=== PATIENT | male | born 1960 | race Caucasian/White ===

== ENCOUNTER 2022-09-09 11:55 | Inpatient (IN) | payer MEDICARE ==
[~2022-09-09] VITALS: Ht 175.3 cm; Wt 115.0 kg
[2022-09-09 13:50] VITALS: BP 125/88
[2022-09-09 14:00] VITALS: BP 138/81
[2022-09-09] MEDS ORDERED: ACETAMINOPHEN TAB 650MG DOSE (2X325MG) PO PRN (14:10)
[2022-09-09] MEDS ORDERED: ONDANSETRON 4MG TAB PO PRN (14:10)
[2022-09-09] MEDS ORDERED: DEXTROSE 50% 50ML SYRINGE IV PRN (14:10)
[2022-09-09] MEDS ORDERED: GLUCAGON INJ 1MG VIAL SC PRN (14:10)
[2022-09-09] MEDS ORDERED: GLUCOSE 4GM CHEW TABLET PO PRN (14:10)
[2022-09-09 15:34] LABS: INR 1.85; PROTHROMBIN TIME 21.7 SECONDS (12.5-14.5)
[2022-09-09] MEDS: REMEDY PHYTOPLEX Z-GUARD PASTE 113GM TUBE (FROM STOREROOM PRODUCT) TOP SCH ×2 (16:00→20:25)
[2022-09-09] MEDS: POLYVINYL ALCOHOL OPHTH SOLN 15ML (LIQUITEARS) OU SCH ×2 (16:00→20:25)
[2022-09-09] MEDS: INSULIN LISPRO (NovoLOG) PER UNIT SC SCH (17:03)
[2022-09-09 20:00] VITALS: BP 128/90
[2022-09-09] MEDS: DOCUSATE SODIUM 100MG CAPSULE PO SCH (20:25)
[2022-09-09] MEDS ORDERED: INSULIN LISPRO (NovoLOG) PER UNIT SC SCH (21:00)
[2022-09-09] MEDS ORDERED: LEVEMIR (INSULIN DETEMIR) 1 UNITS/0.01ML SC SCH (21:00)
[2022-09-09] MEDS ORDERED: TAMS1CAP17 PO (21:04)
[2022-09-09] MEDS ORDERED: ATOR1TAB21 PO (21:04)
[2022-09-09] MEDS ORDERED: AMIO200T37 PO (21:04)
[2022-09-09] MEDS ORDERED: OYST1TAB PO (21:04)
[2022-09-09] MEDS ORDERED: FURO20TA2 PO (21:04)
[2022-09-09] MEDS ORDERED: REFR0.5D8 OU (21:04)
[2022-09-09] MEDS ORDERED: LEVOTAB10 PO (21:04)
[2022-09-09] MEDS ORDERED: WARF-58 PO (21:04)
[2022-09-09] MEDS ORDERED: LEVO50TA5 PO (21:04)
[2022-09-09] MEDS ORDERED: AMLO1TAB25 PO (21:04)
[2022-09-09] MEDS ORDERED: PIOG1TAB55 PO (21:04)
[2022-09-09] MEDS ORDERED: D 101000 PO (21:04)
[2022-09-09] MEDS ORDERED: OMEP40CA4 PO (21:04)
[2022-09-09] MEDS ORDERED: GLIP10TA6 PO (21:04)
[2022-09-09] MEDS ORDERED: CARV25TA PO (21:04)
[2022-09-09] MEDS ORDERED: CENT1TAB12 PO (21:04)
[2022-09-09] MEDS ORDERED: VITA500T40 PO (21:04)
[2022-09-09] MEDS ORDERED: METF10004 PO (21:04)
[2022-09-09] MEDS ORDERED: ASPI81TA26 PO (21:04)
[2022-09-09] MEDS ORDERED: FERR325T3 PO (21:04)
[2022-09-09] MEDS ORDERED: HOME MED LIST COMPLETE! XX SCH (21:05)
[2022-09-09] MEDS: CETIRIZINE (ZyrTEC) 10 MG TAB PO SCH (21:41)
[2022-09-09] MEDS: WARFARIN SOD 2MG TAB PO SCH (21:41)
[2022-09-09] MEDS: SENNA 8.6 MG TAB (SENOKOT) PO SCH (21:41)
[2022-09-09] MEDS: TAMSULOSIN 0.4 MG CAP PO SCH (21:41)
[2022-09-09] MEDS: ATORVASTATIN 20 MG TAB PO SCH (21:41)
[2022-09-09] MEDS: CARVedilol 12.5 MG TAB PO SCH (21:42)
[2022-09-09] MEDS: PANTOPRAZOLE 40MG TAB (PROTONIX) PO SCH (21:42)
[2022-09-09] MEDS: glipiZIDE (GLUCOTROL) 5 MG TAB PO SCH (21:43)
[2022-09-10] MEDS: LEVOTHYROXINE 50MCG TABLET (0.05MG) PO SCH (05:31)
[2022-09-10 06:00] VITALS: BP 108/69
[2022-09-10 06:01] LABS: BASO # 0.1 10^3/uL (0.0-0.2); BASO % 0.8 % (0.0-1.0); EOS # 0.2 10^3/uL (0.0-0.5); EOS % 2.7 % (0.0-3.0); HEMATOCRIT 38.9 % (42.0-52.0); HEMOGLOBIN 12.5 g/dl (13.5-17.5); LYMPH % 11.9 % (24.0-44.0); MEAN CORPUSCULAR HEMOGLOBIN 31.6 pg (27.0-33.0); MEAN CORPUSCULAR HGB CONC 32.1 g/dl (32.0-36.5); MEAN CORPUSCULAR VOLUME 98.5 fl (80.0-96.0); MONO # 1.1 10^3/uL (0.0-0.8); MONO % 13.2 % (2.0-8.0); NEUTROPHILS # 6.1 10^3/uL (1.5-8.5); NEUTROPHILS % 70.8 % (36.0-66.0); PLATELET COUNT, AUTOMATED 344 10^3/uL (150-450); RED BLOOD COUNT 3.95 10^6/uL (4.30-6.10); WHITE BLOOD COUNT 8.6 10^3/uL (4.0-10.0)
[2022-09-10 06:35] LABS: ALBUMIN 2.5 G/DL (3.2-5.2); ALKALINE PHOSPHATASE 266 U/L (46-116); ALT/SGPT 90 U/L (7.0-40); AST/SGOT 94 U/L (<34); BILIRUBIN,TOTAL 0.9 MG/DL (0.3-1.2); BLOOD UREA NITROGEN 20 MG/DL (9-23); CALCIUM LEVEL 8.1 MG/DL (8.3-10.6); CARBON DIOXIDE LEVEL 31 MMOL/L (20-31); CHLORIDE LEVEL 101 MMOL/L (98-107); CREATININE FOR GFR 1.02 MG/DL (0.70-1.30); GLOMERULAR FILTRATION RATE > 60.0 (>49); GLUCOSE, FASTING 58 MG/DL (74-106); POTASSIUM SERUM 4.3 MMOL/L (3.5-5.1); SODIUM LEVEL 137 MMOL/L (136-145); TOTAL PROTEIN 6.3 G/DL (5.7-8.2)
[2022-09-10 06:39] LABS: INR 2.09; PROTHROMBIN TIME 23.8 SECONDS (12.5-14.5)
[2022-09-10] MEDS: INSULIN LISPRO (NovoLOG) PER UNIT SC SCH ×3 (07:30→17:19)
[2022-09-10] MEDS: LEVEMIR (INSULIN DETEMIR) 1 UNITS/0.01ML SC SCH (09:00)
[2022-09-10] MEDS: REMEDY PHYTOPLEX Z-GUARD PASTE 113GM TUBE (FROM STOREROOM PRODUCT) TOP SCH ×3 (09:00→21:00)
[2022-09-10] MEDS: MULTIVITAMINS/MINERALS THERAP 1 TAB PO SCH (09:13)
[2022-09-10] MEDS: DOCUSATE SODIUM 100MG CAPSULE PO SCH ×2 (09:13→21:00)
[2022-09-10] MEDS: AMIODARONE 200 MG TAB (PACERONE) PO SCH (09:13)
[2022-09-10] MEDS: PANTOPRAZOLE 40MG TAB (PROTONIX) PO SCH ×2 (09:14→21:48)
[2022-09-10] MEDS: ASPIRIN 81MG ENTERIC TABLET PO SCH (09:15)
[2022-09-10] MEDS: FUROSEMIDE 20 MG TAB PO SCH (09:15)
[2022-09-10] MEDS: CYANOCOBALAMIN 500 MCG TAB PO SCH (09:16)
[2022-09-10] MEDS: CARVedilol 12.5 MG TAB PO SCH ×2 (09:16→21:48)
[2022-09-10] MEDS: glipiZIDE (GLUCOTROL) 5 MG TAB PO SCH ×2 (09:16→17:17)
[2022-09-10] MEDS: POLYVINYL ALCOHOL OPHTH SOLN 15ML (LIQUITEARS) OU SCH ×3 (09:18→21:49)
[2022-09-10 11:45] VITALS: BP 128/70
[2022-09-10 14:00] VITALS: BP 122/60
[2022-09-10] MEDS: WARFARIN SOD 2MG TAB PO SCH (17:16)
[2022-09-10] MEDS: MAGNESIUM SULFATE GRANULES (EPSOM SALT) 1LB TOP SCH (17:19)
[2022-09-10] MEDS: SENNA 8.6 MG TAB (SENOKOT) PO SCH (21:00)
[2022-09-10] MEDS: ATORVASTATIN 20 MG TAB PO SCH (21:48)
[2022-09-10] MEDS: TAMSULOSIN 0.4 MG CAP PO SCH (21:48)
[2022-09-10] MEDS: CETIRIZINE (ZyrTEC) 10 MG TAB PO SCH (21:48)
[2022-09-10 22:00] VITALS: BP 155/81
[2022-09-11 06:00] VITALS: BP 127/86
[2022-09-11] MEDS: LEVOTHYROXINE 50MCG TABLET (0.05MG) PO SCH (06:10)
[2022-09-11 07:32] LABS: INR 2.04; PROTHROMBIN TIME 23.4 SECONDS (12.5-14.5)
[2022-09-11] MEDS: LEVEMIR (INSULIN DETEMIR) 1 UNITS/0.01ML SC SCH (08:20)
[2022-09-11] MEDS: INSULIN LISPRO (NovoLOG) PER UNIT SC SCH ×3 (08:20→16:41)
[2022-09-11] MEDS: CYANOCOBALAMIN 500 MCG TAB PO SCH (08:21)
[2022-09-11] MEDS: DOCUSATE SODIUM 100MG CAPSULE PO SCH ×2 (08:21→21:00)
[2022-09-11] MEDS: glipiZIDE (GLUCOTROL) 5 MG TAB PO SCH ×2 (08:21→16:41)
[2022-09-11] MEDS: PANTOPRAZOLE 40MG TAB (PROTONIX) PO SCH ×2 (08:21→21:18)
[2022-09-11] MEDS: ASPIRIN 81MG ENTERIC TABLET PO SCH (08:21)
[2022-09-11] MEDS: MULTIVITAMINS/MINERALS THERAP 1 TAB PO SCH (08:24)
[2022-09-11] MEDS: REMEDY PHYTOPLEX Z-GUARD PASTE 113GM TUBE (FROM STOREROOM PRODUCT) TOP SCH ×3 (08:24→21:00)
[2022-09-11] MEDS: AMIODARONE 200 MG TAB (PACERONE) PO SCH (08:24)
[2022-09-11] MEDS: POLYVINYL ALCOHOL OPHTH SOLN 15ML (LIQUITEARS) OU SCH ×3 (08:24→21:19)
[2022-09-11] MEDS: FUROSEMIDE 20 MG TAB PO SCH (08:26)
[2022-09-11] MEDS: CARVedilol 12.5 MG TAB PO SCH ×2 (08:28→21:18)
[2022-09-11 14:26] VITALS: BP 125/90
[2022-09-11] MEDS: WARFARIN SOD 2MG TAB PO SCH (16:40)
[2022-09-11] MEDS: MAGNESIUM SULFATE GRANULES (EPSOM SALT) 1LB TOP SCH (16:41)
[2022-09-11 20:50] VITALS: BP 140/96
[2022-09-11] MEDS: SENNA 8.6 MG TAB (SENOKOT) PO SCH (21:00)
[2022-09-11] MEDS: ATORVASTATIN 20 MG TAB PO SCH (21:17)
[2022-09-11] MEDS: CETIRIZINE (ZyrTEC) 10 MG TAB PO SCH (21:18)
[2022-09-11] MEDS: TAMSULOSIN 0.4 MG CAP PO SCH (21:18)
[2022-09-12] MEDS: CLOTRIMAZOLE 1% TOPICAL CREAM 30GM TOP SCH ×2 (05:24→20:21)
[2022-09-12] MEDS: LEVOTHYROXINE 50MCG TABLET (0.05MG) PO SCH (05:24)
[2022-09-12 06:00] VITALS: BP 125/85
[2022-09-12 07:02] LABS: INR 1.57; PROTHROMBIN TIME 19.1 SECONDS (12.5-14.5)
[2022-09-12] MEDS: INSULIN LISPRO (NovoLOG) PER UNIT SC SCH ×3 (07:22→17:04)
[2022-09-12 08:53] LABS: BASO # 0.1 10^3/uL (0.0-0.2); BASO % 1.3 % (0.0-1.0); EOS # 0.2 10^3/uL (0.0-0.5); EOS % 2.4 % (0.0-3.0); HEMATOCRIT 37.3 % (42.0-52.0); HEMOGLOBIN 12.1 g/dl (13.5-17.5); LYMPH % 15.5 % (24.0-44.0); MEAN CORPUSCULAR HGB CONC 32.4 g/dl (32.0-36.5); MEAN CORPUSCULAR VOLUME 98.7 fl (80.0-96.0); MONO # 0.7 10^3/uL (0.0-0.8); MONO % 11.7 % (2.0-8.0); NEUTROPHILS # 4.3 10^3/uL (1.5-8.5); NEUTROPHILS % 68.5 % (36.0-66.0); PLATELET COUNT, AUTOMATED 290 10^3/uL (150-450); RED BLOOD COUNT 3.78 10^6/uL (4.30-6.10); WHITE BLOOD COUNT 6.3 10^3/uL (4.0-10.0)
[2022-09-12 08:59] LABS: BLOOD UREA NITROGEN 21 MG/DL (9-23); CALCIUM LEVEL 8.1 MG/DL (8.3-10.6); CARBON DIOXIDE LEVEL 30 MMOL/L (20-31); CHLORIDE LEVEL 103 MMOL/L (98-107); CREATININE FOR GFR 1.11 MG/DL (0.70-1.30); GLOMERULAR FILTRATION RATE > 60.0 (>49); GLUCOSE, FASTING 66 MG/DL (74-106); POTASSIUM SERUM 3.9 MMOL/L (3.5-5.1); SODIUM LEVEL 137 MMOL/L (136-145)
[2022-09-12] MEDS: DOCUSATE SODIUM 100MG CAPSULE PO SCH ×2 (09:00→20:18)
[2022-09-12] MEDS: FUROSEMIDE 20 MG TAB PO SCH (09:00)
[2022-09-12] MEDS ORDERED: CLOTRIMAZOLE 1% TOPICAL CREAM 30GM TOP SCH (09:00)
[2022-09-12] MEDS: PANTOPRAZOLE 40MG TAB (PROTONIX) PO SCH ×2 (09:57→20:21)
[2022-09-12] MEDS: MULTIVITAMINS/MINERALS THERAP 1 TAB PO SCH (09:57)
[2022-09-12] MEDS: CYANOCOBALAMIN 500 MCG TAB PO SCH (09:58)
[2022-09-12] MEDS: LEVEMIR (INSULIN DETEMIR) 1 UNITS/0.01ML SC SCH (09:58)
[2022-09-12] MEDS: ASPIRIN 81MG ENTERIC TABLET PO SCH (09:58)
[2022-09-12] MEDS: AMIODARONE 200 MG TAB (PACERONE) PO SCH (09:58)
[2022-09-12] MEDS: CARVedilol 12.5 MG TAB PO SCH ×2 (10:01→20:21)
[2022-09-12] MEDS: REMEDY PHYTOPLEX Z-GUARD PASTE 113GM TUBE (FROM STOREROOM PRODUCT) TOP SCH ×3 (10:01→20:21)
[2022-09-12] MEDS: POLYVINYL ALCOHOL OPHTH SOLN 15ML (LIQUITEARS) OU SCH ×3 (10:01→20:21)
[2022-09-12] MEDS: glipiZIDE (GLUCOTROL) 5 MG TAB PO SCH ×2 (10:03→17:00)
[2022-09-12 14:40] VITALS: BP 128/77
[2022-09-12] MEDS: MAGNESIUM SULFATE GRANULES (EPSOM SALT) 1LB TOP SCH (17:00)
[2022-09-12] MEDS ORDERED: WARFARIN SOD 3MG TAB PO SCH (17:00)
[2022-09-12 20:00] VITALS: BP 122/89
[2022-09-12] MEDS: SENNA 8.6 MG TAB (SENOKOT) PO SCH (20:18)
[2022-09-12] MEDS: TAMSULOSIN 0.4 MG CAP PO SCH (20:20)
[2022-09-12] MEDS: CETIRIZINE (ZyrTEC) 10 MG TAB PO SCH (20:21)
[2022-09-12] MEDS: ATORVASTATIN 20 MG TAB PO SCH (20:21)
[2022-09-13] MEDS: LEVOTHYROXINE 50MCG TABLET (0.05MG) PO SCH (05:30)
[2022-09-13 06:00] VITALS: BP 119/85
[2022-09-13 06:17] LABS: INR 1.51; PROTHROMBIN TIME 18.5 SECONDS (12.5-14.5)
[2022-09-13] MEDS: LEVEMIR (INSULIN DETEMIR) 1 UNITS/0.01ML SC SCH (08:45)
[2022-09-13] MEDS: CYANOCOBALAMIN 500 MCG TAB PO SCH (08:58)
[2022-09-13] MEDS: DOCUSATE SODIUM 100MG CAPSULE PO SCH ×2 (08:58→20:21)
[2022-09-13] MEDS: PANTOPRAZOLE 40MG TAB (PROTONIX) PO SCH ×2 (08:58→20:20)
[2022-09-13] MEDS: glipiZIDE (GLUCOTROL) 5 MG TAB PO SCH ×2 (08:58→16:39)
[2022-09-13] MEDS: MULTIVITAMINS/MINERALS THERAP 1 TAB PO SCH (08:58)
[2022-09-13] MEDS: ASPIRIN 81MG ENTERIC TABLET PO SCH (08:59)
[2022-09-13] MEDS: FUROSEMIDE 20 MG TAB PO SCH (08:59)
[2022-09-13] MEDS: AMIODARONE 200 MG TAB (PACERONE) PO SCH (09:00)
[2022-09-13] MEDS: CARVedilol 12.5 MG TAB PO SCH ×2 (09:00→20:20)
[2022-09-13] MEDS: REMEDY PHYTOPLEX Z-GUARD PASTE 113GM TUBE (FROM STOREROOM PRODUCT) TOP SCH ×3 (09:00→20:21)
[2022-09-13] MEDS: INSULIN LISPRO (NovoLOG) PER UNIT SC SCH ×3 (09:01→17:26)
[2022-09-13] MEDS: POLYVINYL ALCOHOL OPHTH SOLN 15ML (LIQUITEARS) OU SCH ×3 (09:02→20:21)
[2022-09-13] MEDS: CLOTRIMAZOLE 1% TOPICAL CREAM 30GM TOP SCH ×2 (09:02→20:21)
[2022-09-13 14:00] VITALS: BP 135/81
[2022-09-13] MEDS: WARFARIN SOD 4MG TAB PO SCH (16:40)
[2022-09-13] MEDS: MAGNESIUM SULFATE GRANULES (EPSOM SALT) 1LB TOP SCH (16:41)
[2022-09-13 20:00] VITALS: BP 125/78
[2022-09-13] MEDS: CETIRIZINE (ZyrTEC) 10 MG TAB PO SCH (20:20)
[2022-09-13] MEDS: TAMSULOSIN 0.4 MG CAP PO SCH (20:20)
[2022-09-13] MEDS: ATORVASTATIN 20 MG TAB PO SCH (20:21)
[2022-09-13] MEDS: SENNA 8.6 MG TAB (SENOKOT) PO SCH (20:21)
[2022-09-14 06:00] VITALS: BP 121/83
[2022-09-14 06:28] LABS: INR 1.4; PROTHROMBIN TIME 17.4 SECONDS (12.5-14.5)
[2022-09-14] MEDS: LEVOTHYROXINE 50MCG TABLET (0.05MG) PO SCH (06:32)
[2022-09-14] MEDS: INSULIN LISPRO (NovoLOG) PER UNIT SC SCH ×3 (07:30→17:14)
[2022-09-14] MEDS: DOCUSATE SODIUM 100MG CAPSULE PO SCH ×3 (09:00→20:25)
[2022-09-14] MEDS: REMEDY PHYTOPLEX Z-GUARD PASTE 113GM TUBE (FROM STOREROOM PRODUCT) TOP SCH ×3 (09:00→20:26)
[2022-09-14] MEDS: LEVEMIR (INSULIN DETEMIR) 1 UNITS/0.01ML SC SCH (09:00)
[2022-09-14] MEDS: CARVedilol 12.5 MG TAB PO SCH ×2 (09:07→20:25)
[2022-09-14] MEDS: glipiZIDE (GLUCOTROL) 5 MG TAB PO SCH ×2 (09:07→17:12)
[2022-09-14] MEDS: AMIODARONE 200 MG TAB (PACERONE) PO SCH (09:08)
[2022-09-14] MEDS: ASPIRIN 81MG ENTERIC TABLET PO SCH (09:08)
[2022-09-14] MEDS: CYANOCOBALAMIN 500 MCG TAB PO SCH (09:08)
[2022-09-14] MEDS: MULTIVITAMINS/MINERALS THERAP 1 TAB PO SCH (09:08)
[2022-09-14] MEDS: FUROSEMIDE 20 MG TAB PO SCH (09:08)
[2022-09-14] MEDS: PANTOPRAZOLE 40MG TAB (PROTONIX) PO SCH ×2 (09:08→20:25)
[2022-09-14] MEDS: POLYVINYL ALCOHOL OPHTH SOLN 15ML (LIQUITEARS) OU SCH ×3 (09:11→20:26)
[2022-09-14] MEDS: CLOTRIMAZOLE 1% TOPICAL CREAM 30GM TOP SCH ×2 (09:12→20:26)
[2022-09-14 14:00] VITALS: BP 112/80
[2022-09-14] MEDS: MAGNESIUM SULFATE GRANULES (EPSOM SALT) 1LB TOP SCH (17:00)
[2022-09-14] MEDS: WARFARIN SOD 4MG TAB PO SCH (17:12)
[2022-09-14 19:37] VITALS: BP 118/72
[2022-09-14] MEDS: SENNA 8.6 MG TAB (SENOKOT) PO SCH (20:25)
[2022-09-14] MEDS: ATORVASTATIN 20 MG TAB PO SCH (20:25)
[2022-09-14] MEDS: CETIRIZINE (ZyrTEC) 10 MG TAB PO SCH (20:25)
[2022-09-14] MEDS: TAMSULOSIN 0.4 MG CAP PO SCH (20:25)
[2022-09-15 05:39] VITALS: BP 107/73
[2022-09-15] MEDS: LEVOTHYROXINE 50MCG TABLET (0.05MG) PO SCH (05:39)
[2022-09-15 06:05] LABS: BASO # 0.1 10^3/uL (0.0-0.2); BASO % 1.1 % (0.0-1.0); EOS # 0.2 10^3/uL (0.0-0.5); EOS % 2.7 % (0.0-3.0); HEMATOCRIT 37.9 % (42.0-52.0); HEMOGLOBIN 12.1 g/dl (13.5-17.5); LYMPH # 0.9 10^3/uL (1.5-5.0); LYMPH % 16.3 % (24.0-44.0); MEAN CORPUSCULAR HEMOGLOBIN 32.3 pg (27.0-33.0); MEAN CORPUSCULAR HGB CONC 31.9 g/dl (32.0-36.5); MEAN CORPUSCULAR VOLUME 101.1 fl (80.0-96.0); MONO # 0.6 10^3/uL (0.0-0.8); MONO % 10.4 % (2.0-8.0); NEUTROPHILS # 3.9 10^3/uL (1.5-8.5); NEUTROPHILS % 69.1 % (36.0-66.0); PLATELET COUNT, AUTOMATED 192 10^3/uL (150-450); RED BLOOD COUNT 3.75 10^6/uL (4.30-6.10); WHITE BLOOD COUNT 5.6 10^3/uL (4.0-10.0)
[2022-09-15 06:18] LABS: INR 1.39; PROTHROMBIN TIME 17.3 SECONDS (12.5-14.5)
[2022-09-15 06:31] LABS: BLOOD UREA NITROGEN 17 MG/DL (9-23); CALCIUM LEVEL 8.5 MG/DL (8.3-10.6); CARBON DIOXIDE LEVEL 27 MMOL/L (20-31); CHLORIDE LEVEL 105 MMOL/L (98-107); CREATININE FOR GFR 1.05 MG/DL (0.70-1.30); GLOMERULAR FILTRATION RATE > 60.0 (>49); GLUCOSE, FASTING 107 MG/DL (74-106); POTASSIUM SERUM 4.2 MMOL/L (3.5-5.1); SODIUM LEVEL 140 MMOL/L (136-145)
[2022-09-15] MEDS: CLOTRIMAZOLE 1% TOPICAL CREAM 30GM TOP SCH ×2 (09:00→21:42)
[2022-09-15] MEDS: REMEDY PHYTOPLEX Z-GUARD PASTE 113GM TUBE (FROM STOREROOM PRODUCT) TOP SCH ×3 (09:00→21:00)
[2022-09-15] MEDS: CYANOCOBALAMIN 500 MCG TAB PO SCH (09:21)
[2022-09-15] MEDS: FUROSEMIDE 20 MG TAB PO SCH (09:21)
[2022-09-15] MEDS: CARVedilol 12.5 MG TAB PO SCH ×2 (09:21→21:40)
[2022-09-15] MEDS: DOCUSATE SODIUM 100MG CAPSULE PO SCH ×3 (09:21→21:39)
[2022-09-15] MEDS: AMIODARONE 200 MG TAB (PACERONE) PO SCH (09:22)
[2022-09-15] MEDS: PANTOPRAZOLE 40MG TAB (PROTONIX) PO SCH ×2 (09:22→21:39)
[2022-09-15] MEDS: MULTIVITAMINS/MINERALS THERAP 1 TAB PO SCH (09:22)
[2022-09-15] MEDS: glipiZIDE (GLUCOTROL) 5 MG TAB PO SCH ×2 (09:22→17:23)
[2022-09-15] MEDS: ASPIRIN 81MG ENTERIC TABLET PO SCH (09:22)
[2022-09-15] MEDS: INSULIN LISPRO (NovoLOG) PER UNIT SC SCH ×3 (09:23→16:43)
[2022-09-15] MEDS: LEVEMIR (INSULIN DETEMIR) 1 UNITS/0.01ML SC SCH (09:23)
[2022-09-15] MEDS: POLYVINYL ALCOHOL OPHTH SOLN 15ML (LIQUITEARS) OU SCH ×3 (09:24→21:41)
[2022-09-15] MEDS: metFORMIN (GLUCOPHAGE) 500MG TAB PO SCH (12:13)
[2022-09-15] MEDS: MAGNESIUM SULFATE GRANULES (EPSOM SALT) 1LB TOP SCH (12:21)
[2022-09-15 14:40] VITALS: BP 130/88
[2022-09-15] MEDS ORDERED: WARFARIN SOD 4MG TAB PO SCH (17:00)
[2022-09-15] MEDS: WARFARIN SOD 2MG TAB PO SCH (17:23)
[2022-09-15] MEDS: WARFARIN SOD 5MG TAB PO SCH (17:24)
[2022-09-15] MEDS ORDERED: metFORMIN (GLUCOPHAGE) 500MG TAB PO SCH (18:00)
[2022-09-15] MEDS: SENNA 8.6 MG TAB (SENOKOT) PO SCH ×2 (21:00→21:39)
[2022-09-15 21:05] VITALS: BP 136/86
[2022-09-15] MEDS: TAMSULOSIN 0.4 MG CAP PO SCH (21:39)
[2022-09-15] MEDS: ATORVASTATIN 20 MG TAB PO SCH (21:40)
[2022-09-15] MEDS: CETIRIZINE (ZyrTEC) 10 MG TAB PO SCH (21:40)
[2022-09-16 05:11] VITALS: BP 105/78
[2022-09-16] MEDS: LEVOTHYROXINE 50MCG TABLET (0.05MG) PO SCH (05:27)
[2022-09-16 06:50] LABS: INR 1.61; PROTHROMBIN TIME 19.4 SECONDS (12.5-14.5)
[2022-09-16] MEDS: DOCUSATE SODIUM 100MG CAPSULE PO SCH ×2 (09:00→21:00)
[2022-09-16] MEDS: POLYVINYL ALCOHOL OPHTH SOLN 15ML (LIQUITEARS) OU SCH ×3 (09:00→21:14)
[2022-09-16] MEDS: CLOTRIMAZOLE 1% TOPICAL CREAM 30GM TOP SCH ×2 (09:00→21:14)
[2022-09-16] MEDS: REMEDY PHYTOPLEX Z-GUARD PASTE 113GM TUBE (FROM STOREROOM PRODUCT) TOP SCH ×3 (09:00→21:00)
[2022-09-16] MEDS: MULTIVITAMINS/MINERALS THERAP 1 TAB PO SCH (09:04)
[2022-09-16] MEDS: PANTOPRAZOLE 40MG TAB (PROTONIX) PO SCH ×2 (09:04→21:13)
[2022-09-16] MEDS: metFORMIN (GLUCOPHAGE) 500MG TAB PO SCH (09:05)
[2022-09-16] MEDS: glipiZIDE (GLUCOTROL) 5 MG TAB PO SCH ×2 (09:05→17:19)
[2022-09-16] MEDS: CYANOCOBALAMIN 500 MCG TAB PO SCH (09:05)
[2022-09-16] MEDS: ASPIRIN 81MG ENTERIC TABLET PO SCH (09:05)
[2022-09-16] MEDS: CARVedilol 12.5 MG TAB PO SCH ×2 (09:06→21:14)
[2022-09-16] MEDS: AMIODARONE 200 MG TAB (PACERONE) PO SCH (09:06)
[2022-09-16] MEDS: FUROSEMIDE 20 MG TAB PO SCH (09:06)
[2022-09-16] MEDS: INSULIN LISPRO (NovoLOG) PER UNIT SC SCH ×3 (09:07→17:21)
[2022-09-16] MEDS: MAGNESIUM SULFATE GRANULES (EPSOM SALT) 1LB TOP SCH (17:00)
[2022-09-16] MEDS: WARFARIN SOD 5MG TAB PO SCH (17:20)
[2022-09-16] MEDS: WARFARIN SOD 2MG TAB PO SCH (17:20)
[2022-09-16 20:28] VITALS: BP 117/86
[2022-09-16] MEDS: SENNA 8.6 MG TAB (SENOKOT) PO SCH (21:00)
[2022-09-16] MEDS: TAMSULOSIN 0.4 MG CAP PO SCH (21:13)
[2022-09-16] MEDS: ATORVASTATIN 20 MG TAB PO SCH (21:13)
[2022-09-16] MEDS: CETIRIZINE (ZyrTEC) 10 MG TAB PO SCH (21:14)
[2022-09-17] MEDS: LEVOTHYROXINE 50MCG TABLET (0.05MG) PO SCH (05:54)
[2022-09-17 06:08] VITALS: BP 131/92
[2022-09-17 06:27] LABS: INR 2.03; PROTHROMBIN TIME 23.3 SECONDS (12.5-14.5)
[2022-09-17] MEDS: REMEDY PHYTOPLEX Z-GUARD PASTE 113GM TUBE (FROM STOREROOM PRODUCT) TOP SCH ×3 (09:00→20:19)
[2022-09-17] MEDS: INSULIN LISPRO (NovoLOG) PER UNIT SC SCH ×3 (09:14→17:28)
[2022-09-17] MEDS: ASPIRIN 81MG ENTERIC TABLET PO SCH (09:15)
[2022-09-17] MEDS: DOCUSATE SODIUM 100MG CAPSULE PO SCH ×3 (09:15→20:21)
[2022-09-17] MEDS: MULTIVITAMINS/MINERALS THERAP 1 TAB PO SCH (09:15)
[2022-09-17] MEDS: FUROSEMIDE 20 MG TAB PO SCH (09:15)
[2022-09-17] MEDS: CARVedilol 12.5 MG TAB PO SCH ×2 (09:18→20:18)
[2022-09-17] MEDS: CYANOCOBALAMIN 500 MCG TAB PO SCH (09:19)
[2022-09-17] MEDS: PANTOPRAZOLE 40MG TAB (PROTONIX) PO SCH ×2 (09:19→20:18)
[2022-09-17] MEDS: POLYVINYL ALCOHOL OPHTH SOLN 15ML (LIQUITEARS) OU SCH ×3 (09:19→20:18)
[2022-09-17] MEDS: AMIODARONE 200 MG TAB (PACERONE) PO SCH (09:19)
[2022-09-17] MEDS: CLOTRIMAZOLE 1% TOPICAL CREAM 30GM TOP SCH ×2 (09:20→20:19)
[2022-09-17] MEDS: glipiZIDE (GLUCOTROL) 5 MG TAB PO SCH ×2 (09:24→17:25)
[2022-09-17] MEDS: metFORMIN (GLUCOPHAGE) 500MG TAB PO SCH (09:24)
[2022-09-17 14:00] VITALS: BP 118/71
[2022-09-17] MEDS: MAGNESIUM SULFATE GRANULES (EPSOM SALT) 1LB TOP SCH (17:00)
[2022-09-17] MEDS: WARFARIN SOD 5MG TAB PO SCH (17:25)
[2022-09-17] MEDS: WARFARIN SOD 2MG TAB PO SCH (17:25)
[2022-09-17 20:00] VITALS: BP 132/82
[2022-09-17] MEDS: TAMSULOSIN 0.4 MG CAP PO SCH (20:17)
[2022-09-17] MEDS: CETIRIZINE (ZyrTEC) 10 MG TAB PO SCH (20:17)
[2022-09-17] MEDS: ATORVASTATIN 20 MG TAB PO SCH (20:17)
[2022-09-17] MEDS: SENNA 8.6 MG TAB (SENOKOT) PO SCH (20:17)
[2022-09-18] MEDS ORDERED: LEVOTHYROXINE 50MCG TABLET (0.05MG) As Ordered ONE (05:28)
[2022-09-18] MEDS: LEVOTHYROXINE 50MCG TABLET (0.05MG) PO SCH (05:59)
[2022-09-18 06:00] VITALS: BP 114/78
[2022-09-18 07:19] LABS: INR 2.34
[2022-09-18] MEDS: INSULIN LISPRO (NovoLOG) PER UNIT SC SCH ×3 (07:30→17:14)
[2022-09-18] MEDS: PANTOPRAZOLE 40MG TAB (PROTONIX) PO SCH ×2 (08:15→20:19)
[2022-09-18] MEDS: AMIODARONE 200 MG TAB (PACERONE) PO SCH (08:15)
[2022-09-18] MEDS: CYANOCOBALAMIN 500 MCG TAB PO SCH (08:15)
[2022-09-18] MEDS: ASPIRIN 81MG ENTERIC TABLET PO SCH (08:15)
[2022-09-18] MEDS: metFORMIN (GLUCOPHAGE) 500MG TAB PO SCH (08:16)
[2022-09-18] MEDS: glipiZIDE (GLUCOTROL) 5 MG TAB PO SCH ×2 (08:16→17:13)
[2022-09-18] MEDS: DOCUSATE SODIUM 100MG CAPSULE PO SCH ×2 (08:16→20:18)
[2022-09-18] MEDS: MULTIVITAMINS/MINERALS THERAP 1 TAB PO SCH (08:16)
[2022-09-18] MEDS: POLYVINYL ALCOHOL OPHTH SOLN 15ML (LIQUITEARS) OU SCH ×3 (08:17→20:19)
[2022-09-18] MEDS: REMEDY PHYTOPLEX Z-GUARD PASTE 113GM TUBE (FROM STOREROOM PRODUCT) TOP SCH ×3 (08:17→20:19)
[2022-09-18] MEDS: FUROSEMIDE 20 MG TAB PO SCH (08:18)
[2022-09-18] MEDS: CARVedilol 12.5 MG TAB PO SCH ×2 (08:18→20:18)
[2022-09-18] MEDS: CLOTRIMAZOLE 1% TOPICAL CREAM 30GM TOP SCH ×2 (09:00→20:20)
[2022-09-18 14:00] VITALS: BP 135/84
[2022-09-18] MEDS ORDERED: WARFARIN SOD 3MG TAB PO SCH (17:00)
[2022-09-18] MEDS: MAGNESIUM SULFATE GRANULES (EPSOM SALT) 1LB TOP SCH (17:00)
[2022-09-18 20:00] VITALS: BP 116/78
[2022-09-18] MEDS: CETIRIZINE (ZyrTEC) 10 MG TAB PO SCH (20:19)
[2022-09-18] MEDS: SENNA 8.6 MG TAB (SENOKOT) PO SCH (20:19)
[2022-09-18] MEDS: ATORVASTATIN 20 MG TAB PO SCH (20:19)
[2022-09-18] MEDS: TAMSULOSIN 0.4 MG CAP PO SCH (20:19)
[2022-09-19 06:00] VITALS: BP 117/82
[2022-09-19] MEDS: LEVOTHYROXINE 50MCG TABLET (0.05MG) PO SCH (06:04)
[2022-09-19 06:53] LABS: INR 3.63; PROTHROMBIN TIME 36.7 SECONDS (12.5-14.5)
[2022-09-19] MEDS: INSULIN LISPRO (NovoLOG) PER UNIT SC SCH ×2 (07:30→12:26)
[2022-09-19] MEDS: metFORMIN (GLUCOPHAGE) 500MG TAB PO SCH (08:20)
[2022-09-19] MEDS: CYANOCOBALAMIN 500 MCG TAB PO SCH (08:20)
[2022-09-19] MEDS: MULTIVITAMINS/MINERALS THERAP 1 TAB PO SCH (08:20)
[2022-09-19] MEDS: PANTOPRAZOLE 40MG TAB (PROTONIX) PO SCH (08:21)
[2022-09-19] MEDS: glipiZIDE (GLUCOTROL) 5 MG TAB PO SCH (08:21)
[2022-09-19] MEDS: FUROSEMIDE 20 MG TAB PO SCH (08:21)
[2022-09-19] MEDS: ASPIRIN 81MG ENTERIC TABLET PO SCH (08:21)
[2022-09-19] MEDS: AMIODARONE 200 MG TAB (PACERONE) PO SCH (08:21)
[2022-09-19 08:22] VITALS: BP 114/79
[2022-09-19] MEDS: CARVedilol 12.5 MG TAB PO SCH (08:22)
[2022-09-19] MEDS: DOCUSATE SODIUM 100MG CAPSULE PO SCH (08:22)
[2022-09-19] MEDS: REMEDY PHYTOPLEX Z-GUARD PASTE 113GM TUBE (FROM STOREROOM PRODUCT) TOP SCH (08:23)
[2022-09-19] MEDS: CLOTRIMAZOLE 1% TOPICAL CREAM 30GM TOP SCH (08:23)
[2022-09-19] MEDS: POLYVINYL ALCOHOL OPHTH SOLN 15ML (LIQUITEARS) OU SCH (08:23)
[2022-09-19] MEDS ORDERED: TAMS1CAP17 PO (10:51)
[2022-09-19] MEDS ORDERED: GLIP5TAB8 PO (10:51)
[2022-09-19] MEDS ORDERED: FURO20TA2 PO (10:51)
[2022-09-19] MEDS ORDERED: ASPI81TA26 PO (10:51)
[2022-09-19] MEDS ORDERED: OMEP40CA4 PO (10:51)
[2022-09-19] MEDS ORDERED: AMIO200T37 PO (10:51)
[2022-09-19] MEDS ORDERED: ATOR1TAB21 PO (10:51)
[2022-09-19] MEDS ORDERED: WARF-58 PO (10:51)
[2022-09-19] MEDS ORDERED: AMLO1TAB25 PO (10:51)
[2022-09-19] MEDS ORDERED: LEVO50TA5 PO (10:51)
== END 2022-09-19 14:15 | disposition home health service (06) | DRG 92 ==
LOC: M PM&R 12:50
PROVIDERS: ADMIT Physical Medicine & Rehabilitation; ATTEND Physical Medicine & Rehabilitation
DX: G72.81 Critical illness myopathy (principal); E87.1 Hypo-osmolality and hyponatremia; I50.32 Chronic diastolic (congestive) heart failure; I48.91 Unspecified atrial fibrillation; I11.0 Hypertensive heart disease with heart failure; E11.42 Type 2 diabetes mellitus with diabetic polyneuropathy; E78.5 Hyperlipidemia, unspecified; E03.9 Hypothyroidism, unspecified; R53.1 Weakness; E11.649 Type 2 diabetes mellitus with hypoglycemia without coma; R26.89 Other abnormalities of gait and mobility; E11.65 Type 2 diabetes mellitus with hyperglycemia; I25.2 Old myocardial infarction; I25.5 Ischemic cardiomyopathy; N40.0 Benign prostatic hyperplasia without lower urinary tract symptoms; E66.01 Morbid (severe) obesity due to excess calories; Z74.09 Other reduced mobility; Z74.1 Need for assistance with personal care; Z95.810 Presence of automatic (implantable) cardiac defibrillator; Z95.5 Presence of coronary angioplasty implant and graft; Z86.74 Personal history of sudden cardiac arrest; Z79.01 Long term (current) use of anticoagulants; Z79.82 Long term (current) use of aspirin; Z79.84 Long term (current) use of oral hypoglycemic drugs; Z79.890 Hormone replacement therapy; Z79.899 Other long term (current) drug therapy; Z88.8 Allergy status to other drugs, medicaments and biological substances; Z93.4 Other artificial openings of gastrointestinal tract status; Z68.36 Body mass index [BMI] 36.0-36.9, adult